=== PATIENT | female | born 1990 | race Caucasian/White ===

== ENCOUNTER 2018-04-12 14:20 | Inpatient (IN) | payer OTHER ==
[~2018-04-12] VITALS: Ht 160 cm; Wt 60.4 kg
[2018-04-12 16:57] VITALS: BP 131/87
[2018-04-12] MEDS ORDERED: LORazepam 2 MG TABLET PO PRN (17:15)
[2018-04-12] MEDS ORDERED: HALOPERIDOL 5 MG TABLET PO PRN (17:15)
[2018-04-12 17:55] VITALS: BP 130/89
[2018-04-12] MEDS ORDERED: GuaiFENesin/D-METHORPHAN [SUGAR-FREE] 200-20MG/10 ML SYRUP UDCUP PO PRN (19:30)
[2018-04-12] MEDS ORDERED: LOPERAMIDE HCL 2 MG CAPSULE PO PRN (19:30)
[2018-04-12] MEDS ORDERED: ALBUTEROL SULFATE HFA 90 MCG/PUFF 8 GM INHALER IH PRN (19:30)
[2018-04-12] MEDS ORDERED: NICOTINE 14 MG/24 HOUR PATCH TD PRN (19:30)
[2018-04-12] MEDS ORDERED: ACETAMINOPHEN 325 MG TABLET PO PRN (19:30)
[2018-04-12] MEDS ORDERED: IBUPROFEN 400 MG TABLET PO PRN (19:30)
[2018-04-12] MEDS ORDERED: PETROLATUM,WHITE 71 GM JELLY TP PRN (19:30)
[2018-04-12] MEDS ORDERED: MAGNESIUM HYDROXIDE SUSPENSION 30 ML UDCUP PO PRN (19:30)
[2018-04-12] MEDS ORDERED: DOCUSATE SODIUM 100 MG CAPSULE PO PRN (19:30)
[2018-04-12] MEDS ORDERED: CloNIDine HCL 0.1 MG TABLET PO PRN (19:30)
[2018-04-12] MEDS ORDERED: MAG HYDROX/AL HYDROX/SIMETH ES 30 ML SUSPENSION UDCUP PO PRN (19:30)
[2018-04-13 01:31] VITALS: BP 122/75
[2018-04-13 08:05] VITALS: BP 119/66
[2018-04-13 08:47] LABS: BASOPHILS % (AUTO) 0.1 % (0.0-2.0); EOSINOPHILS % (AUTO) 1.4 % (1.0-6.0); HEMATOCRIT 38.5 % (36-46); HEMOGLOBIN 13.6 g/dL (12.0-16.0); LYMPHOCYTES # (AUTO) 1.8 K/uL (1.0-4.8); LYMPHOCYTES % (AUTO) 20.8 % (22.0-44.0); MEAN CORPUSCULAR HEMOGLOBIN 30.6 pg (26.0-34.0); MEAN CORPUSCULAR HGB CONC 35.3 G/dL (31.0-37.0); MEAN CORPUSCULAR VOLUME 87 fL (80-100); MONOCYTES # (AUTO) 0.5 K/uL (0.1-1.0); MONOCYTES % (AUTO) 5.8 % (2.0-9.0); NEUTROPHILS # (AUTO) 6.2 K/uL (1.8-7.7); NEUTROPHILS % (AUTO) 71.9 % (40.0-70.0); PLATELET COUNT (AUTO) 233 K/uL (150-450); RED BLOOD CELL COUNT(AUTO) 4.45 MIL/uL (4.00-5.20); RED CELL DISTRIBUTION WIDTH 12.2 % (11.5-14.5)
[2018-04-13 08:49] LABS: HEMOGLOBIN A1C 4.9 % (4.5-6.2)
[2018-04-13 09:16] LABS: ALANINE AMINOTRANSFERASE 18 U/L (12-78); ALBUMIN 3.8 g/dL (3.4-5.0); ALKALINE PHOSPHATASE 53 U/L (46-116); ANION GAP 12 mmol/L (8-16); ASPARTATE AMINOTRANSFERASE 15 U/L (15-37); BILIRUBIN,TOTAL 0.9 mg/dL (0.1-1.0); CARBON DIOXIDE 25 mmol/L (22-29); CHLORIDE 100 mmol/L (98-107); CHOL/HDL RATIO 5.7 (3.9-5.7); CHOLESTEROL 170 mg/dL (131-200); FREE T4 (FREE THYROXINE) 1.15 ng/dL (0.76-1.46); GLOMERULAR FILTR. RATE CALC > 60 mL/min (>60); GLUCOSE,RANDOM 85 mg/dL (70-110); HCG,QUANTITATIVE < 1 mIU/mL (0-6); HDL CHOLESTEROL 30 mg/dL (40-60); LDL CHOL (CALC.) 118 mg/dL (0-130); POTASSIUM 3.5 mmol/L (3.5-5.1); SODIUM SERUM 137 mmol/L (136-145); TOTAL PROTEIN, SERUM 7.8 g/dL (6.4-8.2); TRIGLYCERIDES 112 mg/dL (15-150); UREA NITROGEN, BLOOD 17 mg/dL (7-18)
[2018-04-13 09:20] LABS: CALCIUM, TOTAL 8.5 mg/dL (8.8-10.5)
[2018-04-13 16:20] VITALS: BP 119/84
[2018-04-13 18:01] VITALS: BP 120/86
[2018-04-13] MEDS: ZOLPIDEM TARTRATE 10 MG TABLET PO PRN (21:50)
[2018-04-14 01:01] VITALS: BP 121/74
[2018-04-14] MEDS: ONDANSETRON HCL 4 MG TABLET PO PRN ×2 (05:23→19:47)
[2018-04-14 08:03] VITALS: BP 119/74
[2018-04-14] MEDS: SERTRALINE HCL 50 MG TABLET PO SCH (08:06)
[2018-04-14 16:08] VITALS: BP 117/80
[2018-04-14] MEDS: ZOLPIDEM TARTRATE 10 MG TABLET PO PRN (21:07)
[2018-04-15 08:09] VITALS: BP 123/88
[2018-04-15] MEDS: SERTRALINE HCL 50 MG TABLET PO SCH (08:13)
[2018-04-15] MEDS ORDERED: SERT50TA12 PO ×2 (08:39→12:07)
== END 2018-04-15 13:00 | disposition home or self-care (01) | DRG 885 ==
LOC: B2X 17:02
DX: F33.2 Major depressive disorder, recurrent severe without psychotic features (principal); R45.851 Suicidal ideations; E83.51 Hypocalcemia; F12.90 Cannabis use, unspecified, uncomplicated; G43.909 Migraine, unspecified, not intractable, without status migrainosus; G47.00 Insomnia, unspecified; Z82.3 Family history of stroke; Z91.5 Personal history of self-harm; Z88.2 Allergy status to sulfonamides
CPT/HCPCS: 83036; 84439; 84443; 87081; Q0162